=== PATIENT | female | born 1990 | race Caucasian/White ===

== ENCOUNTER → 2021-04-24 14:04 | Outpatient (CLI) | payer OTHER, SELFPAY | PROVIDERS: Visit Provider Obstetrics & Gynecology | DX: Z03.818 Encounter for observation for suspected exposure to other biological agents ruled out (principal) | CPT/HCPCS: 87635; C9803; U0005; U0003 ==

== ENCOUNTER 2021-04-27 06:58 | Inpatient (IN) | payer OTHER, SELFPAY ==
[2021-04-27] VITALS (35 sets, daily range): BP systolic 93–137; BP diastolic 51–85; PULSE 62–158; TEMP 36.4–37.5; O2SAT 83–100; BMI 24.6
[2021-04-27] MEDS: Lactated Ringers 1,000 ML 50 ML IV (07:55)
[2021-04-27 08:11] LABS: Absolute Lymphocyte Count 2.18 X10^3/uL (0.83-4.51); Absolute Neutrophil Count 8.1 X10^3/uL (2.0-7.7); Basophil# 0.03 X10^3/uL; Basophil% 0.3 % (0-1); Eosinophil# 0.08 X10^3/uL; Eosinophils% 0.7 % (0-5); Hematocrit 35.9 % (37-47); Hemoglobin 11.6 g/dL (12.0-15.0); Lymphocyte # 2.18 X10^3/ul (0.83-4.51); Lymphocyte % 19.2 % (19-41); Mean Corp Hgb Conc 32.3 g/dL (32-36); Mean Corpuscular Hgb 28.9 pg (27.0-32.0); Mean Corpuscular Volume 89.3 fL (81-99); Mean Platelet Vol. 11.1 fl (6.2-12.0); Monocyte# 0.81 X10^3/uL; Monocyte% 7.1 % (0-10); NRBC Flagged by Analyzer 0 % (0-5); Neutrophil # 8.07 X10^3/uL (2.7-7.7); Neutrophil % 71.2 % (47-70); Platelet Count 201 K/mm3 (150-450); RBC Distribution Width CV 13.9 % (11.6-14.6); RBC Distribution Width SD 45.4 fl (35.1-43.9); Red Blood Count 4.02 M/mm3 (4.2-5.4); White Blood Count 11.3 K/mm3 (4.4-11.0)
[2021-04-27] MEDS: 0.9% Normal Saline Single 100 ML IV.SOLN. INTRA-UTER (08:37)
[2021-04-27] MEDS: Oxytocin 30 units/NS 500 ml 30 UNITS/500 ML IV.SOLN IV (08:55)
[2021-04-27] MEDS: Lactated Ringers 500 ML 999 ML IV (11:30)
[2021-04-27] MEDS: Lactated Ringers 1,000 ML 200 ML IV (14:53)
[2021-04-27] MEDS: fentaNYL-bupivacaine (epidural) 100 ML BAG EPIDURAL ×2 (14:56→16:39)
[2021-04-27] MEDS: Oxytocin 30 units/NS 500 ml 30 UNITS/500 ML IV.SOLN 334 UNITS IV (17:59)
--- NOTE | 2021-04-27 18:11 | PCM.HP.OB ---
HPI - General General Date of Admission: 04/27/21 Date of Service: 04/27/21 Chief Complaint: HPI Narrative JON FRANCIS, is a 30 F who presents Maternal Data Information Final JO: 05/04/21 Final JO Source: US <20 weeks PFSH PFSH Home Medications no.144-folic acid [] 1 tab PO DAILY 04/27/21 [History Last Taken Unknown] Allergy/AdvReac Type Severity Reaction Status Date / Time No Known Allergies Allergy Verified 04/27/21 08:49 Social History Smoking Status: Current every day smoker History Elective abortions Hx Para 2 Spontaneous abortions Hx # Term Pregnancies Ectopic pregnancies Hx # Pregnancies Multiple births # of living children ROS Constitutional Constitutional: Denies fatigue, fever(s) or malaise Eyes Eyes: Denies change in vision ENT HEENT: Denies dizziness or headache(s) Cardiovascular Cardiovascular: Denies chest pain, dyspnea or lightheadedness Respiratory/Chest Respiratory/Chest: Denies cough or dyspnea Gastrointestinal Gastrointestinal: Denies change in bowel habits Genitourinary Genitourinary: Denies burning urination or genital lesions Integumentary Integumentary: Denies rash Neurologic Neurologic: Denies confusion, dizziness, headache(s), numbness or weakness Vital Signs Vital Signs Vital Signs: 04/27/21 08:10 04/27/21 08:11 04/27/21 10:29 Temperature 98.5 F Temperature Source Temporal Pulse Rate 81 72 Blood Pressure 124/62 H 106/61 BP Systolic 124 106 BP Diastolic 62 61 Pulse Ox 98 97 04/27/21 10:30 04/27/21 10:31 04/27/21 12:08 Temperature Temperature Source Pulse Rate 127 H 158 H 62 Blood Pressure BP Systolic BP Diastolic Pulse Ox 83 83 100 04/27/21 12:11 04/27/21 12:13 04/27/21 12:18 Temperature 98.2 F Temperature Source Pulse Rate 81 71 73 Blood Pressure 128/85 H 120/74 BP Systolic 128 120 BP Diastolic 85 74 Pulse Ox 99 98 04/27/21 12:23 04/27/21 12:28 04/27/21 12:33 Temperature Temperature Source Pulse Rate 76 78 76 Blood Pressure 107/67 103/59 L BP Systolic 107 103 BP Diastolic 67 59 Pulse Ox 98 98 98 04/27/21 12:36 04/27/21 12:38 04/27/21 12:41 Temperature Temperature Source Pulse Rate 75 85 90 Blood Pressure 103/51 L 99/56 L BP Systolic 103 99 BP Diastolic 51 56 Pulse Ox 97 04/27/21 12:43 04/27/21 12:47 04/27/21 12:48 Temperature Temperature Source Pulse Rate 77 72 75 Blood Pressure 109/57 L BP Systolic 109 BP Diastolic 57 Pulse Ox 97 97 04/27/21 13:28 04/27/21 14:41 04/27/21 14:42 Temperature 98.1 F Temperature Source Temporal Pulse Rate 84 70 Blood Pressure 109/60 93/56 L BP Systolic 109 93 BP Diastolic 60 56 Pulse Ox 98 98 04/27/21 15:38 04/27/21 16:42 04/27/21 16:43 Temperature 97.9 F 97.5 F L Temperature Source Temporal Temporal Pulse Rate 65 78 Blood Pressure 109/67 101/61 BP Systolic 109 101 BP Diastolic 67 61 Pulse Ox 99 99 95 04/27/21 17:45 Temperature Temperature Source Pulse Rate 105 H Blood Pressure BP Systolic BP Diastolic Pulse Ox 91 Weight Weight: 61.2 kg Body Mass Index (BMI) 24.6 Physical Exam Const alert and no apparent distress General Appearance: cooperative HEENT normocephalic Resp normal respiratory effort Cardio regular rate GI soft to palpation GI Narrative: gravid, nontender, appropriate for gestational age Extremity no calf tenderness General Extremity: edema Skin no wounds Rashes: No rashes noted Psych activity/motor behavior normal Labs Labs Labs: Blood Type B NEGATIVE Antibody Screen NEGATIVE Hct 35.9 % (37-47) L Hgb 11.6 g/dL (12.0-15.0) L Assessment & Plan (1) 39 weeks gestation of : (2) IUGR (intrauterine growth restriction): PLAN: R/B/A/P to lubin/pit/arom induction reviewed,questions answered to her satisfaction and she desires to proceed. EFW < 4000 gm and pelvis clinically adequate to expect vaginal delivery epidural prn Proceedure note- Lubin placed over stylette through internal cervical os and inflated to 30 cc and placement over internal os confirmed. Patient and fetus tolerate this well. (3) Supervision of other high risk pregnancies, third trimester:
--- NOTE | 2021-04-27 18:17 | EX.PCM.OBRPT ---
Assessment & Plan (1) Normal vaginal delivery: Maternal Data Information Final JO: 05/04/21 Vaginal Delivery Maternal Presentation Maternal Presentation: Medically Indicated Induction Type of Induction: Pitocin, Moya Bulb and Amniotomy Medical Reason for Induction: - (supsected IUGR, EFW < 4th percentile) Operative Information Date of Procedure: 04/27/21 Pre-Operative Diagnosis: 39 weeks multigravida, suspected IUGR Post-Operative Diagnosis: same Surgery / Procedure Performed: Spontaneous Vaginal Delivery Type of Anesthesia: Epidural Special Medications: none Drain: Moya to straight drain (removed at delivery) Estimated Blood Loss: 200 Time of Delivery: 17:58 Findings Description of Procedure: A vigorous female infant was delivered AMIE over an intact perineum. The remainder the infant was delivered with maternal pushing and gentle traction only in less than 15 seconds. The Pitocin infusion was initiated for active management of the third stage. The cord was clamped and cut after 1 minute. The infant was attended to by the waiting nursing staff. The placenta was delivered spontaneously and intact. The cervix and vagina were intact. Sponge and needle counts were correct. A vaginal sweep was completed by me. Presentation: AMIE Amniotic Membrane Rupture Type: Spontaneous Amniotic Fluid Description: Clear Placental Delivery Description: Spontaneous Placenta Disposition: [facility] Cord Vessel Description: 3 Vessels Cord Entanglement: None Nuchal Cord Compression: Without compression A Gender: Female (Lilli) (1 minute): 8 (5 minute): 9 Delayed Cord Clamping: Yes Post Vaginal Delivery Medications Given After Delivery: IV Pitocin Episiotomy Description: None Laceration: None Complication Complications: None
[2021-04-28] VITALS (11 sets, daily range): BP systolic 105–121; BP diastolic 55–72; PULSE 51–80; RESP 16–18; TEMP 36.8–37.1; O2SAT 97–100
[2021-04-28] MEDS: Naproxen 500 MG Tablet PO ×2 (00:30→12:16)
[2021-04-28] MEDS: Acetaminophen 500 MG Tablet 1000 MG PO (05:28)
--- NOTE | 2021-04-28 08:00 | PCM.PN.OB ---
Subjective Subjective Patient seen at bedside, doing well. pt reports good pain control. Lochia mild. urinating without difficulty, ambulating and tolerating regular diet. breast feeding. Objective Data Objective Data Vital Signs: Vital Signs Temp Pulse Resp BP Pulse Ox 98.6 F 65 16 109/72 100 04/28/21 07:31 04/28/21 07:31 04/28/21 07:31 04/28/21 07:31 04/28/21 03:10 Oxygen Delivery Method Room Air Weight: 61.2 kg Body Mass Index (BMI) 24.6 Intake & Output: Intake and Output for Last 24 Hours 04/26/21 04/27/21 04/28/21 23:59 23:59 23:59 Intake Total 2448.76 / 2448.76 Output Total 2400 / 2400 Balance 48.76 / 48.76 Lab / Micro Data Result Diagrams: 04/27/21 07:55 Labs: Laboratory Results - last 24 hr 04/27/21 04/27/21 04/27/21 07:55 07:55 21:27 WBC 11.3 H RBC 4.02 L Hgb 11.6 L Hct 35.9 L MCV 89.3 MCH 28.9 MCHC 32.3 RDW Std Deviation 45.4 H RDW Coeff of Bridger 13.9 Plt Count 201 MPV 11.1 Immature Gran % (Auto) 1.500 H Neut % (Auto) 71.2 H Lymph % (Auto) 19.2 Weston % (Auto) 7.1 Eos % (Auto) 0.7 Baso % (Auto) 0.3 Absolute Neuts (auto) 8.1 H Absolute Lymphs (auto) 2.18 Nucleated RBC % 0 Blood Type B NEGATIVE Antibody Screen NEGATIVE Screen NEGATIVE Baby's Blood Type O POSITIVE Baby's SHIVANI NEGATIVE Physical Exam Const alert and oriented x3 General Appearance: cooperative HEENT normocephalic Neck General: normal visual inspection GI soft to palpation and non-distended GI Narrative: Fundus firm Extremity normal to inspection and no calf tenderness Skin no rashes or lesions noted Neuro oriented x3 and CN's II-XII intact bilaterally Psych mental status grossly normal Assessment & Plan (1) Normal vaginal delivery: PLAN: PPD# 1 , Doing well Routine care pain mgmt ambulation dc home
--- NOTE | 2021-04-28 08:01 | PCM.DC ---
Discharge Instructions Diet Discharge Diet: No restrictions Activity May resume sexual activity in: 6-8 weeks Dressing / Incision Call your doctor if you observe: Fever of 101 or Higher, Inability to urinate, Using more than 1 pad per hour and Uncontrolled pain Follow Up Care Please Follow Up With: Radha Madera MD When: 1-2 weeks post and again at 6 weeks post . [phone] Test Results: Test results from this visit will be discussed in further detail at your follow-up appointment, if applicable. Discharge Plan Admission Admit Date/Time: 04/27/21 06:58 Attending Provider: Sophia Tovar Primary Care Provider: Payal Navarro NP Discharge Orders/Prescriptions Prescriptions: No Action 400 mcg Tablet,Chewable 1 tab PO DAILY RF: 0
== END 2021-04-28 18:30 | disposition home or self-care (01) | DRG 807 ==
PROVIDERS: Admitting Provider Obstetrics & Gynecology; PCP Nurse Practitioner Family; Referring Provider Obstetrics & Gynecology; Visit Provider Obstetrics & Gynecology
DX: O36.5930 Maternal care for other known or suspected poor fetal growth, third trimester, not applicable or unspecified (principal); Z37.0 Single live birth; O99.334 Smoking (tobacco) complicating childbirth; F17.200 Nicotine dependence, unspecified, uncomplicated; Z3A.39 39 weeks gestation of pregnancy
CPT/HCPCS: 59025; 59050; 85025; 85461; 86850; 86900; 86901; 90384; 99218; J7120; G0378; J2790

== ENCOUNTER 2022-06-24 17:05 | Emergency (ER) | payer BC, SELFPAY ==
[2022-06-24 17:06] VITALS: BP 127/83; PULSE 79; RESP 15; TEMP 36.4; O2SAT 99; BMI 19.3
--- NOTE | 2022-06-24 18:00 | EDS_ITS ---
HPI <PAPO Kim - Last Filed: 06/24/22 18:09> History of Present Illness Chief Complaint: Dental Narrative Narrative: 31-year-old female with no stated medical history presents the [facility] 4 to 5 days of left upper tooth pain. Patient was placed on amoxicillin, however after 1 day the swelling got worse they placed her on Augmentin, she has 2 days of Augmentin and still has having pain and swelling. She is established with a dentist which she is going to see on 02 July. She denies any fevers or chills. She denies any drainage. Patient still able to eat and drink however this is painful. PFSH <PAPO Kim - Last Filed: 06/24/22 18:09> [facility] Home Medications vitamins no.144-folic acid 400 mcg chewable tablet () 1 tab PO DAILY Check with primary doctor 04/27/21 [History Last Taken Unknown] clindamycin HCl 150 mg capsule 450 mg PO TID 7 days #63 caps 06/24/22 [Rx Last Taken Unknown] oxycodone-acetaminophen 5 mg-325 mg tablet (Percocet) 1 tab PO Q6H PRN pain 3 days #10 tabs 06/24/22 [Rx Last Taken Unknown] Allergy/AdvReac Type Severity Reaction Status Date / Time No Known Allergies Allergy Verified 06/24/22 17:08 Social History Smoking Status: Current every day smoker ROS <PAPO Kim - Last Filed: 06/24/22 18:09> ROS ED ROS Narrative Constitutional: Negative for fever, chills, weight loss, weakness Eyes: Negative for vision loss, vision change, double vision ENT: Negative for any sore throat, ear pain congestion. Positive for left facial pain, left facial swelling, left tooth pain Cardiovascular: Negative for any chest pain, tightness, palpitations Respiratory: Negative for any cough, sputum production, hemoptysis, dyspnea, dyspnea on exertion, orthopnea Gastrointestinal: Negative for any abdominal pain, nausea, vomiting, diarrhea, constipation, blood in stool, blood in vomit : Negative for any urinary frequency, dysuria, retention, blood in urine Muscle skeletal: Negative for any muscle joint pain, stiffness, myalgias, arthralgias, neck pain, back pain Neurological: Negative for any headache, syncope, numbness or tingling, dizziness Skin: Negative for any rashes, lumps, itching, abrasions, lacerations Psychiatric: Negative for any depression, anxiety, stress, suicidal ideation, homicidal ideation Hematologic: Negative for any easy bruising, excessive bruising, easy bleeding Allergies: Negative for any eczema, hives, rash EXAM <PAPO Kim - Last Filed: 06/24/22 18:09> Physical Exam Narrative Exam Narrative: Vital signs reviewed. HEET: Head normocephalic atraumatic, TMs clear bilaterally. Posterior pharynx is clear, moist mucous membranes. Nares clear bilaterally. Neck: Supple with no lymphadenopathy or tenderness. No signs of meningismus, negative jolt sign. Patient has no visual abscess to the left upper jaw. Patient does have some edema to the left lower eye, left cheek. There is no cellulitis, septal cellulitis, facial cellulitis. I do believe that this is referred inflammatory disease secondary to the infected tooth. Patient has slight trismus however is able to open the mouth as well as talk without any difficulty Cardiac: Regular rate and rhythm no murmurs gallops or rubs, equal peripheral pulses bilaterally. Respiratory: Lungs clear to auscultation bilaterally. No chest tenderness. Abdomen: Soft, nontender, nondistended. No abdominal bruit or pulsatile masses. No hepatosplenomegaly Extremities: No peripheral edema, no signs of gross trauma or deformity. Active full range of motion of all extremities. Neuro: Cranial nerves II through XII intact, no focal neurological deficits. Skin: Clean dry and intact with no rash, purpura, petechiae, vesicles or pustules. Backs/flank: No CVA tenderness, no midline spinal tenderness, no deformity. Psych: Normal mood and affect. No SI, HI or acute psychosis. Const Vital Signs: 06/24/22 17:06 Temperature 97.5 F L Temperature Source Temporal Pulse Rate 79 Respiratory Rate 15 Blood Pressure 127/83 H Blood Pressure Mean 97 Pulse Ox 99 Oxygen Delivery Method Room Air Positive well nourished and well developed General Appearance ED: well developed <Dr. Catalino Ventura DO - Last Filed: 06/24/22 18:25> Physical Exam Const Vital Signs: 06/24/22 17:06 Temperature 97.5 F L Temperature Source Temporal Pulse Rate 79 Respiratory Rate 15 Blood Pressure 127/83 H Blood Pressure Mean 97 Pulse Ox 99 Oxygen Delivery Method Room Air [facility] <PAPO Kim - Last Filed: 06/24/22 18:09> [facility] Lab Data Attestation: I reviewed the patient's lab results. Treatment and Re-Evaluation Narrative: Patient appears well, patient appears nontoxic, vital signs are stable. Patient presents to the emergency department with left facial swelling secondary to tooth infection. Patient has failed amoxicillin, Augmentin, however patient does not look septic. There is no gross drainage, no deep tissue infection. Patient has some referred edema secondary to the tooth infection. Patient will be switched to clindamycin as well as given a short course of pain medicine for her comfort. She will follow-up with her dentist as discussed this upcoming week. She is instructed to return for worsening pain, inability to open her mouth, fever chills nausea vomiting. Patient is stable for discharge <Dr. Catalino Ventura DO - Last Filed: 06/24/22 18:25> [facility] Narrative Medical decision making narrative: I performed a history and physical examination of the patient and discussed management plan with the physician pediatric physician assistant. I reviewed the physician pediatric physician assistant's note and agree with the documented findings and plan of care. Patient is status post working well on the left upper. This was done 2 days ago. She was started on amoxicillin yesterday changed to Augmentin and continues to swell. She notes bruising in the left periorbital region. She has an appointment on the with dentistry. I do not see or palpate an obvious drainable abscess along the gumline. There is no trismus or floor the mouth swelling. Patient will be placed on clindamycin and given pain medication. Return if worsening or concerns Catalino Ventura DO, MS Discharge Plan Triage Chief Complaint: Dental ED Midlevel Provider: Ugo Lockhart ED Provider: Catalino Ventura Dx/Rx/DC Orders Clinical Impression: Dental caries, Facial swelling, Tooth ache Instructions: ED Dental Pain, ED Dental Cavity Prescriptions: New clindamycin HCl 150 mg capsule 450 mg PO TID 7 Days Qty: 63 0RF oxycodone-acetaminophen [Percocet] 5-325 mg tablet 1 tab PO Q6H PRN (Reason: pain) 3 Days Qty: 10 0RF No Action 400 mcg Tablet,Chewable 1 tab PO DAILY Primary Care Provider: Payal Navarro NP Referrals: Payal Navarro NP, [employer] [Primary Care Provider] - Activity Restrictions/Additional Instructions: Please start new antibiotics of clindamycin, do not take any more Augmentin. Use pain medicine as needed, you may also use anti-inflammatories such as ibuprofen Disposition Disposition: Home, Self Care
[2022-06-24 18:27] VITALS: PULSE 82; RESP 17; O2SAT 99
== END 2022-06-24 18:28 | disposition home or self-care (01) ==
PROVIDERS: Emergency Provider Emergency Medicine; PCP Nurse Practitioner Family; Visit Provider Emergency Medicine
DX: K04.7 Periapical abscess without sinus (principal); K02.9 Dental caries, unspecified; F17.200 Nicotine dependence, unspecified, uncomplicated
CPT/HCPCS: 99282

== ENCOUNTER 2023-03-04 18:59 | Emergency (ER) | payer BC, SELFPAY ==
[2023-03-04 19:03] VITALS: BP 102/63; PULSE 103; RESP 18; TEMP 37.1; O2SAT 98; BMI 21.4
--- NOTE | 2023-03-04 20:07 | EX.ED.VIS.UR ---
HPI HPI - URI History of Present Illness Chief Complaint: Cough Informant: patient Narrative Narrative: Patient is a 32-year-old female currently 15 weeks presenting with fever and body aches and URI symptoms. Patient states about 8-9 days ago she developed cold symptoms. She has been only taking Tylenol. She states it started with sinus congestion and then she developed diarrhea and intermittent headaches. She had mild body aches but today her body is becoming more worse and she developed a fever of 100.4 ?F. Her cough is minimally productive. She took Mucinex around 4 PM and a cough but nonproductive since. She notes her symptoms have worsened since this afternoon. She denies any shortness of breath. Her family members have had milder version of the symptoms. Patient is [address] follows with Dr[address] Tovar. She denies any vaginal bleeding or leakage of fluids. Denies any abdominal pain or urinary symptoms. No other complaints at this time. ROS ROS ED Constitutional Constitutional ED: Reports chills and fever(s) Eyes Eyes: Denies change in vision ENT ENT ED: Reports other Details: nasal congestion ; Denies ear pain Cardiovascular Cardiovascular: Denies chest pain or palpitations Respiratory/Chest Respiratory/Chest: Reports cough; Denies dyspnea or dyspnea on exertion Gastrointestinal Gastrointestinal: Reports diarrhea; Denies abdominal pain, nausea or vomiting Genitourinary Genitourinary ED: Reports other Details: 15 weeks ; Denies dysuria or hematuria Musculoskeletal Musculoskeletal: Reports myalgias; Denies arthralgias Integumentary Denies rash Neurologic Neurologic: Denies headache(s) or weakness Psychiatric Psychiatric: Denies anxiety PFSH PFSH Home Medications vitamins no.144-folic acid 400 mcg chewable tablet () 1 tab PO DAILY Check with primary doctor 04/27/21 [History Last Taken Unknown] clindamycin HCl 150 mg capsule 450 mg PO TID 7 days #63 caps 06/24/22 [Rx Last Taken Unknown] oxycodone-acetaminophen 5 mg-325 mg tablet (Percocet) 1 tab PO Q6H PRN pain 3 days #10 tabs 06/24/22 [Rx Last Taken Unknown] albuterol sulfate 90 mcg/actuation aerosol inhaler (Ventolin HFA) 1 - 2 puff inhalation Q4H PRN PRN Wheezing #1 inh 03/04/23 [Rx Last Taken Unknown] benzonatate 200 mg capsule 200 mg PO TID PRN cough #20 caps 03/04/23 [Rx Last Taken Unknown] Allergy/AdvReac Type Severity Reaction Status Date / Time No Known Allergies Allergy Verified 03/04/23 19:03 Social History Smoking Status: Current every day smoker tobacco type: cigarettes EXAM Physical Exam Const Vital Signs: 03/04/23 19:03 Temperature 98.8 F Temperature Source Temporal Pulse Rate 103 H Respiratory Rate 18 Blood Pressure 102/63 Blood Pressure Mean 76 Pulse Ox 98 Oxygen Delivery Method Room Air Positive well nourished and well developed General Appearance ED: well developed and NAD HEENT Reports moist mucous membranes HEENT Narrative: Clear tympanic membranes bilaterally. Mild serous effusion on the right side. normocephalic and atraumatic Throat: posterior oropharynx normal Eyes PERRL and EOMs intact bilaterally Neck supple and no meningeal signs Resp normal respiratory effort and clear to auscultation bilaterally Resp Narrative: Clear breath sounds throughout. Patient does have bronchial cough on exam. No crackles appreciated Cardio no murmurs Rate: regular rate Rhythm: regular rhythm GI non-tender Palpation: soft; Negative for guarding Extremity normal to inspection and full ROM Neuro oriented x3 Sensorium / Orientation: alert Motor Exam: Negative for general weakness Psych mental status grossly normal Skin Rashes: no rashes MDM MDM MDM Narrative Medical decision making narrative: Patient evaluated for cough,, fever and URI symptoms. Presentation is consistent with a viral illness. Due to new fever in the setting of cough, CXR obtained. This is interpreted by myself as well as radiology as no acute process. COVID and flu swab are negative. Patient is hemodynamically stable in the ER. She is not hypoxic. She is afebrile at this time despite not taking any antipyretics prior to arrival. Physical exam is not consistent with acute pharyngitis. Abdomen is soft and nontender. I do not suspect another source of infection at this time. Patient be treated symptomatically with Tessalon Perles, albuterol inhaler and continue [id number] Tylenol, Robitussin and guaifenesin. Patient agreeable this plan of care. Is given reassurance as well as return precautions. Case is discussed with on-call, Conor, who is agreeable with these prescriptions and plan of care. Patient discharged home in stable condition Lab Data Attestation: I reviewed the patient's lab results. Radiography Diagnostic Testing: Clinical Impression(s) from Imaging Studies Chest X-Ray 03/04/23 20:15 IMPRESSION: No radiographic evidence of acute cardiopulmonary disease. Electronically Signed: Te Bernal DO at 20:50 EDT Reading Location ID and State: [facility] / [place] Tel [phone], Service support , Discharge Plan Triage Chief Complaint: Cough Other Complaint: Fever ED Provider: Essence Colvin Dx/Rx/DC Orders Clinical Impression: Acute viral syndrome, Bronchitis Instructions: ED Bronchitis, No Antibiotic (Adult), ED Viral Syndrome (Adult) Prescriptions: New benzonatate 200 mg capsule 200 mg PO TID PRN (Reason: cough) Qty: 20 0RF albuterol sulfate [Ventolin HFA] 90 mcg/actuation HFA aerosol inhaler 1 - 2 puff inhalation Q4H PRN PRN (Reason: Wheezing) Qty: 1 0RF No Action 400 mcg Tablet,Chewable 1 tab PO DAILY clindamycin HCl 150 mg capsule 450 mg PO TID 7 Days Qty: 63 0RF oxycodone-acetaminophen [Percocet] 5-325 mg tablet 1 tab PO Q6H PRN (Reason: pain) 3 Days Qty: 10 0RF Primary Care Provider: Care Physician,No Primary Referrals: Sophia Tovar MD [Med Staff - Active Staff] - 3-5 Days if not improving Care Physician,No Primary [Primary Care Provider] - Activity Restrictions/Additional Instructions: Your COVID and flu test were negative. I suspect your symptoms are viral and probably developing into a bronchitis. You been prescribed cough medicine as well as an inhaler. You may continue to take [id number] Robitussin, Tylenol and Mucinex for your symptoms. If you develop a difficult time breathing or have worsening symptoms please return to the emergency room. Disposition Disposition: Home, Self Care
[2023-03-04] MEDS: Acetaminophen 325 MG Tablet 650 MG PO (20:12)
--- NOTE | 2023-03-04 20:15 | RAD_ITS ---
INDICATION: cough, fever EXAMINATION/TECHNIQUE: X-RAY - XR Chest 2 Views COMPARISON: None. FINDINGS: LINES/DEVICES: None. LUNGS: No consolidation, edema or effusion. No pneumothorax. MEDIASTINUM AND CARDIOVASCULAR STRUCTURES: Cardiac silhouette not enlarged. Central airways and mediastinal contour are unremarkable. BONES AND SOFT TISSUES: Unremarkable. RAD/Chest PA and Lateral IMPRESSION: No radiographic evidence of acute cardiopulmonary disease. Electronically Signed: Te Bernal DO at 20:50 EDT ,
== END 2023-03-04 22:29 | disposition home or self-care (01) ==
PROVIDERS: Emergency Provider Emergency Medicine; Visit Provider Emergency Medicine
DX: O99.512 Diseases of the respiratory system complicating pregnancy, second trimester (principal); J40 Bronchitis, not specified as acute or chronic; Z3A.15 15 weeks gestation of pregnancy; O99.332 Smoking (tobacco) complicating pregnancy, second trimester; B34.9 Viral infection, unspecified; F17.210 Nicotine dependence, cigarettes, uncomplicated; O98.512 Other viral diseases complicating pregnancy, second trimester
CPT/HCPCS: 71046; 87428; 99283

== ENCOUNTER 2023-08-10 07:10 | Inpatient (IN) | payer BC, SELFPAY ==
[2023-08-10] VITALS (55 sets, daily range): BP systolic 98–132; BP diastolic 52–74; PULSE 60–86; RESP 16; TEMP 36.1–37.1; O2SAT 84–100; BMI 23.8
[2023-08-10] MEDS: Lactated Ringers 1,000 ML 50 ML IV (07:50)
--- NOTE | 2023-08-10 07:54 | PCM.HP.OB ---
HPI - General General Date of Admission: 08/10/23 HPI Narrative JON FRANCIS, is a 33 F @ 39 weeks who presents for elective IOL PFSH PFSH Home Medications vitamins no.144-folic acid 400 mcg chewable tablet () 1 tab PO DAILY Check with primary doctor 04/27/21 [History Last Taken Unknown] clindamycin HCl 150 mg capsule 450 mg (3 x 150 mg) PO TID 7 days #63 caps 06/24/22 [Rx Last Taken Unknown] oxycodone-acetaminophen 5 mg-325 mg tablet (Percocet) 1 tab PO Q6H PRN pain 3 days #10 tabs 06/24/22 [Rx Last Taken Unknown] albuterol sulfate 90 mcg/actuation aerosol inhaler (Ventolin HFA) 1 - 2 puff inhalation Q4H PRN PRN Wheezing #1 inh 03/04/23 [Rx Last Taken Unknown] benzonatate 200 mg capsule 200 mg PO TID PRN cough #20 caps 03/04/23 [Rx Last Taken Unknown] Allergy/AdvReac Type Severity Reaction Status Date / Time No Known Allergies Allergy Verified 08/10/23 07:57 Social History Smoking Status: Current every day smoker tobacco type: cigarettes History Elective abortions Hx Para 2 Spontaneous abortions Hx # Term Pregnancies Ectopic pregnancies Hx # Pregnancies Multiple births # of living children Vital Signs Vital Signs Vital Signs: 08/10/23 07:44 08/10/23 07:44 08/10/23 07:44 Pulse Rate 81 86 Blood Pressure 122/72 H BP Systolic 122 BP Diastolic 72 Pulse Ox 08/10/23 07:44 Pulse Rate Blood Pressure BP Systolic BP Diastolic Pulse Ox 99 Weight Weight: 57.334 kg Body Mass Index (BMI) 23.8 Physical Exam Const alert and oriented x3 General Appearance: cooperative HEENT normocephalic GI GI Narrative: Gravid, non tender to palpation. OB / External & Speculum: external exam normal Extremity normal to inspection Skin no rashes or lesions noted Neuro oriented x3 and CN's II-XII intact bilaterally Psych Appearance: grossly normal Labs Labs Labs: Blood Type B NEGATIVE Antibody Screen NEGATIVE Hct 35.9 % (37-47) L Hgb 11.6 g/dL (12.0-15.0) L
--- NOTE | 2023-08-10 08:17 | PCM.PN.BLA ---
Progress Note VE: /-2 AROM performed- Scant clear fluid. will start pitocin.
[2023-08-10] MEDS: Oxytocin 15 Units/NS 250ml 15 UNITS/250 ML IV.SOLN 2 UNITS IV (08:30)
[2023-08-10 08:43] LABS: Absolute Lymphocyte Count 1.74 X10^3/uL (0.83-4.51); Absolute Neutrophil Count 6.5 X10^3/uL (2.0-7.7); Basophil# 0.03 X10^3/uL; Basophil% 0.3 % (0-1); Eosinophil# 0.06 X10^3/uL; Eosinophils% 0.7 % (0-5); Hematocrit 36.7 % (37-47); Hemoglobin 11.8 g/dL (12.0-15.0); Lymphocyte # 1.74 X10^3/ul (0.83-4.51); Lymphocyte % 19.1 % (19-41); Mean Corp Hgb Conc 32.2 g/dL (32-36); Mean Corpuscular Hgb 28.3 pg (27.0-32.0); Mean Platelet Vol. 11.2 fl (6.2-12.0); Monocyte# 0.71 X10^3/uL; Monocyte% 7.8 % (0-10); NRBC Flagged by Analyzer 0 % (0-5); Neutrophil # 6.46 X10^3/uL (2.7-7.7); Neutrophil % 70.9 % (47-70); Platelet Count 182 K/mm3 (150-450); RBC Distribution Width SD 48.1 fl (35.1-43.9); Red Blood Count 4.17 M/mm3 (4.2-5.4); White Blood Count 9.1 K/mm3 (4.4-11.0)
[2023-08-10 09:27] LABS: Syphilis Antibodies Non-reactive
[2023-08-10] MEDS: LACTATED RINGERS 500 ML 999 ML IV (12:39)
[2023-08-10] MEDS: fentaNYL-bupivacaine (epidural) 100 ML BAG EPIDURAL (13:30)
--- NOTE | 2023-08-10 14:50 | NURSING ---
reviewed and agree with student nurse charting that is used for educational and learning purposes.
[2023-08-10] MEDS: Lactated Ringers 1,000 ML 200 ML IV (15:56)
--- NOTE | 2023-08-10 16:45 | EX.PCM.OBRPT ---
Vaginal Delivery Maternal Presentation Maternal Presentation: Elective Induction Type of Induction: Pitocin and Amniotomy Operative Information Date of Procedure: 08/10/23 Pre-Operative Diagnosis: 39 weeks gestation, supervision of normal Post-Operative Diagnosis: Live female born Surgery / Procedure Performed: Spontaneous Vaginal Delivery Type of Anesthesia: Epidural Drain: Moya to straight drain Estimated Blood Loss: 100 Time of Delivery: 16:34 Findings Description of Procedure: Patient progressed to fully dilated. Upon my arrival she was fully dilated +2 station. Good maternal pushing efforts delivered the 's head. Gentle downward traction delivered the anterior shoulder followed by the rest the 's body. The infant was then placed on the mother's chest for immediate skin to skin. Delayed cord clamping was performed. Pitocin was then started. The placenta was then delivered intact without complication. Vaginal and perineal tissue was examined and noted to be intact. Presentation: Vertex Amniotic Membrane Rupture Type: Artificial Amniotic Fluid Description: Clear Placental Delivery Description: Spontaneous Placenta Disposition: [facility] Cord Vessel Description: 3 Vessels Cord Entanglement: None (1 minute): 8 (5 minute): 9 Delayed Cord Clamping: Yes Post Vaginal Delivery Medications Given After Delivery: IV Pitocin Episiotomy Description: None Laceration: None Complication Complications: None
[2023-08-10] MEDS: Oxytocin 15 Units/NS 250ml 15 UNITS/250 ML IV.SOLN 83 UNITS IV (17:08)
[2023-08-10] MEDS: Acetaminophen 500 MG Tablet 1000 MG PO (22:26)
[2023-08-11] VITALS (9 sets, daily range): BP systolic 99–120; BP diastolic 52–76; PULSE 62–77; RESP 15–17; TEMP 36.1–36.8; O2SAT 98
[2023-08-11] MEDS: Ibuprofen 600 MG Tablet PO ×2 (01:37→07:59)
[2023-08-11] MEDS: Acetaminophen 500 MG Tablet 1000 MG PO ×2 (05:22→13:37)
[2023-08-11] MEDS: Senna/Docusate Sodium 1 Tablet PO (08:00)
--- NOTE | 2023-08-11 10:58 | DCINST_ITS ---
Discharge Instructions Diet Discharge Diet: No restrictions Activity Discharge Activity: May Shower May resume sexual activity in: 6 weeks Ice area for (Minutes): 15 Weight Bearing Status: Weight bearing as tolerated Lifting Restrictions: nothing heavier than baby Dressing / Incision Call your doctor if you observe: Fever of 101 or Higher, Coldness, Increased Pain, Numbness or Tingling, Change in Color, Inability to urinate, Inability to have a bowel movement, Using more than 1 pad per hour, Shortness of breath, Dizziness, Fainting spells, Swelling in the ankles, Chest pain, Increased palpitations (irregular heartbeat), Calf discomfort and Uncontrolled pain Cleanse incision/area with: Soap & Water Follow Up Care When: 1 week for early 6 weeks for exam Test Results: Test results from this visit will be discussed in further detail at your follow- up appointment, if applicable. Discharge Plan Admission Admit Date/Time: 08/10/23 07:10 Primary Reason for Your Visit: delivery Attending Provider: Radha Madera Primary Care Provider: Care Physician,Terrie Primary Instructions Patient Instructions: After a Vaginal Discharge Orders/Prescriptions Prescriptions: Continued 400 mcg Tablet,Chewable 1 tab PO DAILY Discontinued ferrous sulfate [iron] 325 mg (65 mg iron) tablet 325 mg PO DAILY famotidine 20 mg tablet 20 mg PO PRN Referrals / Follow Up: Care Physician,No Primary [Primary Care Provider] - Disposition Disposition (needs filled in before D/C Order can be placed): Home, Self Care
--- NOTE | 2023-08-11 10:58 | PCM.PN.OB ---
Subjective Subjective Doing well this morning. She offers no complaints. She desires to go home today. Some mild cramping. Denies lightheadedness, dizziness, chest pain, shortness of breath, leg pain. Lochia is normal. She is ambulating and voiding without difficulty. She is tolerating regular diet without nausea or vomiting. Objective Data Objective Data Vital Signs: Vital Signs Temp Pulse Resp BP Pulse Ox O2 Del Method 97.1 F L 71 17 112/60 99 Room Air 08/11/23 09:24 08/11/23 09:24 08/11/23 09:24 08/11/23 09:24 08/10/23 18:30 08/11/23 09:24 Oxygen Delivery Method Room Air Weight: 126 lb 6.4 oz Body Mass Index (BMI) 23.8 Intake & Output: Intake and Output for Last 24 Hours 08/09/23 08/10/23 08/11/23 23:59 23:59 23:59 Intake Total 2509.93 / 2509.93 Output Total 1600 / 1600 Balance 909.93 / 909.93 Lab / Micro Data 08/10/23 07:55 Labs: Laboratory Results - last 24 hr 08/10/23 07:55: Antibody Identification ANTI-D 08/10/23 18:50: Screen NEGATIVE, Baby's Blood Type B POSITIVE, Baby's SHIVANI NEGATIVE Physical Exam Const alert and no apparent distress General Appearance: comfortable HEENT normocephalic Resp normal respiratory effort GI soft to palpation, non-tender and non-distended GI Narrative: FF@U-1 Extremity normal to inspection and no calf tenderness Assessment & Plan (1) Normal vaginal delivery: PLAN: The patient is day 1 from a vaginal delivery. Desires discharge. Meeting milestones for discharge home. Has follow-up in the office next week.
--- NOTE | 2023-08-11 14:13 | NURSING ---
This practical nursing instructor reviewed the documentation and was present for all medication administration completed by Hilda Polanco, student nurse.
--- NOTE | 2023-08-12 13:48 | CASEMGMT ---
Social Work Assessment Labor and Delivery Unit Patient Address:[address] [place] [address] Phone number: [phone] Date of Referral: 08/10/23 Time of Referral:? 1918 Referred By: Radha Diaz Date of Intervention: 08/11/23?? Time of Intervention:? 1510 Reason for Referral:? History of PPD, was on zoloft Sw completed chart review and acknowledges social work consult. Sw presented to bedside and introduced self to mother of baby (MOB- Prisca) and father of baby (FOB- Blaine). Sw explained reason for sw involvement and completed psychosocial assessment. Sw assessed for any needs or concerns regarding MOB mental health history and any immediate issues. Sw did not see need to complete [place] Depression Scale. History obtained from: medical records and mother of baby (MOB)?and FOB. ?? Household composition: Currently residing in the family home is ANGELES MIRELES, now new born baby when ready for discharge and three other children. Omayra: 11 years old, Hector: 9 years old and Mary Anne: 6 years old Patient's parent/guardian status:? MOB and FOGuanakito met through mutual friends and have been for four years. They have two children together ( baby and Mary Anne), CHI's other two children are from a prior relationship. No concerns noted regarding domestic violence or intimate partner violence. Medical History: ?CHI is 6, para 3- now 4. CHI received routine care during with [facility]. Baby was born on 08/10/23 via vaginal delivery. Baby girl, named Sterling, was born weighing 7lb 5oz and her apgars were 8 and 9 at one and five minutes of life respectfully. Baby will be followed by Dr. George for pediatrics. Educational Status:?Both parents graduated from high school and have some college education, but no degree. Financial Status: Both parents are gainfully employed outside of the home. FOGuanakito works for [employer] as a supervisor rework. He is able to take one week off of work. CHI works for [employer] and is a wedding organizer for them. CHI is off of work until the next year. Supplies:??Parents have everything they need for baby including: car seat, safe sleep space, clothes, diapers, wipes and a breast pump. Childcare/Caregiver(s):? MOB will be the primary caregiver to baby while she is on maternity leave. When both parents are working MOB will be able to arrange her schedule so that one of them is usually home with the baby and other children. Parents report when they need help they do have some family and friends who can provide childcare. Transportation:?Both parents have their drivers license and reliable means of transportation. No transportation barriers at this time. ? Programs/Agencies Involved: ???Family is not connected to any community agencies/resources at this time. Children Services/Legal Issues: No former involvement, no issues or concerns warranting a referral at this time. ??? Behavioral Health Issues: ??Mental Health History:?FOB denies mental health history. When asked about mental health, MOB also denies any clinical diagnoses. Sw asked MOB if she ever struggled with baby blues or depression. MOB stated that she thinks she struggled with the baby blues, but worked through it and knows what to expect should she struggle. Sw educated parents on signs and symptoms of baby blues and depression/ anxiety. ?? Substance Use History:?MOB used tobacco during , denies any other substances prior to and during . ? Family History: Parents deny family mental health and family substance use history. ? Drug Screens: ?No urine screens observed in chart review ? Family/Social Stressors:? None disclosed at this time. Support Systems: Parents state they have family, friends and co-workers that are supportive Depression/Shaken Baby/Safe Sleeping:?Sw provided education on signs and symptoms of baby blues and depression to look for. Sw provided parents with literature on signs and symptoms of these issues for their review. Sw educated parents on shaken baby prevention and ABCs of safe sleep. Parents expressed understanding. ASSESSMENT:? FOB observed to hold baby in tender, loving manner. MOB presented to bedside after smoking outside, sw encouraged MOB to not smoke around baby, always smoke outside and to wash hands or change clothes prior to holding and caring for her. Parents answered questions asked by sw and engaged in conversation. Both parents appeared eager for discharge, happy that baby was born and expressed no issues or concerns at this time. Parents were receptive to sw involvement and support. PLAN:?MOB and baby to be discharged when medically ready. ?No other services requested or indicated. Jeniffer Sandoval, MANAGER VIDEO, DIESEL ENGINE TESTER
--- NOTE | 2023-08-15 11:29 | NURSING ---
follow up call complete, denies questions or concerns reports her and baby are both doing very well. Reports to stopping yesterday and switching to formula but is okay with this decision and denies the need for care at this time .Reports that she was satisfied with her care in the [facility]
== END 2023-08-11 17:45 | disposition home or self-care (01) | DRG 807 ==
PROVIDERS: Admitting Provider Obstetrics & Gynecology; Referring Provider Obstetrics & Gynecology; Visit Provider Obstetrics & Gynecology
DX: O75.9 Complication of labor and delivery, unspecified (principal); Z37.0 Single live birth; O26.23 Pregnancy care for patient with recurrent pregnancy loss, third trimester; F17.210 Nicotine dependence, cigarettes, uncomplicated; O99.334 Smoking (tobacco) complicating childbirth; Z3A.39 39 weeks gestation of pregnancy
CPT/HCPCS: 59025; 59050; 85025; 85461; 86780; 86850; 86870; 86900; 86901; 99221; J7120; G0378; J2790

== ENCOUNTER 2023-10-21 11:16 | Day surgery (SDC) | payer BC, SELFPAY ==
[2023-10-21] VITALS (8 sets, daily range): BP systolic 108–151; BP diastolic 63–90; PULSE 50–79; RESP 16–18; TEMP 36.4–37; O2SAT 98–100; BMI 21.2
--- NOTE | 2023-10-21 | FALS_PTH ---
PATIENT: JON VASQUES [place] [facility] [id number] AGE/SX: 33/F ROOM: RE10/21/[address]: Dr. Azalea Sabillon DO : 1990 BED: DIS: 10/21/2023 SPEC #: [id number] RECD: 10/21/23 16:20 STATUS: SHIRA REShawnee #: [id number] JOAQUIN: 10/21/23 00:[address]: Azalea Sabillon DEPT: SURGICAL PATHOLOGY RECD BY: Oscar Blandon ENTERED: 10/24/23 09:18 SP TYPE: FALL TUBES OTHR DR: Terrie Primary Care Phys Tissues: Fallopian tube Procedures: Surgery Specimen Level II HEADER OPERATION: Laparoscopic bilateral salpingectomy PRE-OP DIAGNOSIS: Sterilization TISSUE SUBMITTED: Bilateral fallopian tubes MICROSCOPIC DIAGNOSIS Right and left fallopian tubes, bilateral salpingectomies: Complete cross-sections of fallopian tubes with no pathologic change. AM:tiburcio 10/25/2023 MICROSCOPIC DESCRIPTION Slides are reviewed. GROSS DESCRIPTION Received in fixative is one container labeled with the patient's name and designated bilateral fallopian tubes. The specimen consists of bilateral fallopian tubes including fimbrial ends. One fallopian tube measures 6.0 cm in length and up to 0.7 cm in diameter. The second fallopian tube received in two pieces measures 7.0 cm in length and 0.7 cm in diameter. The fallopian tubes are not identified as right or left. Sections reveal unremarkable cut surfaces. [employer] Manager sections are submitted in two cassettes as follows: 1 - intact fallopian tube, 2 - fallopian tube received in two pieces. / GENEVA:tiburcio 10/24/2023 TC:4 CPT: 99322 x2
[2023-10-21 11:44] LABS: Internal QC Validated? YES +Cl - CLEAR BKGD; Pregnancy, Urine Negative Negative
[2023-10-21] MEDS: Lactated Ringers 1,000 ML 15 ML IV ×2 (12:03→14:11)
[2023-10-21 12:12] LABS: Hematocrit 41.3 % (37-47); Hemoglobin 13.6 g/dL (12.0-15.0); Mean Corp Hgb Conc 32.9 g/dL (32-36); Mean Corpuscular Hgb 29.1 pg (27.0-32.0); Mean Corpuscular Volume 88.2 fL (81-99); Mean Platelet Vol. 10.4 fl (6.2-12.0); Platelet Count 227 K/mm3 (150-450); RBC Distribution Width CV 15.4 % (11.6-14.6); RBC Distribution Width SD 49.5 fl (35.1-43.9); Red Blood Count 4.68 M/mm3 (4.2-5.4); White Blood Count 7.5 K/mm3 (4.4-11.0)
[2023-10-21] MEDS: Bupivacaine Mpf 0.5% 30 ML VIAL (13:37)
--- NOTE | 2023-10-21 13:45 | OP.PCM_ITS ---
Problems Associated Problem List Diagnoses (1) Request for sterilization: Report of Operation Date of Procedure: 10/21/23 Pre-Operative Diagnosis: Request for sterilization Post-Operative Diagnosis: As above Surgery/Procedure Performed:: Laparoscopic bilateral salpingectomy Description of Surgical Findings:: Normal appearing uterus and bilateral adnexa. Normal-appearing pelvic cul-de-sac Surgeon: Azalea Sabillon ambulance driver paramedic: Daisy Amaya [id number] Type of Anesthesia: General Special Medications: None Specimen's removed: Bilateral fallopian tubes Drains: None Estimated Blood Loss (mL): < 50 Fluids Replaced: 1.2 L Description of Procedure: The patient was taken to the operating room where she was prepped and draped in the usual sterile fashion in dorsal lithotomy position using yellowfin stirrups, and general anesthesia was induced. A weighted speculum was placed in the vagina to expose the cervix. The anterior lip of the cervix was grasped with a single-tooth tenaculum. A uterine manipulator was placed. The single-tooth tenaculum and weighted speculum were removed. Gloves were changed and attention was turned to the abdominal portion of the procedure. An infraumbilical incision was made with a scalpel to accommodate the 5 mm port. The 5 mm port was placed using a laparoscope under direct visualization. Once confirmed intraperitoneal, CO2 insufflation was initiated. No injury was noted upon entry. The patient was placed in Trendelenburg. A left lateral 5 mm port was placed. A right lateral 5 mm port was placed. The uterus and bilateral adnexa were normal-appearing. The right fallopian tube was followed out to the fimbriated end. Using the LigaSure device the mesosalpinx was serially clamped, cauterized, and transected hugging adjacent to the fallopian tube until reaching level of the cornua. Once at the level of the cornua the left fallopian tube was transected and removed. The right fallopian tube was then followed out to the fimbriated end. The LigaSure device was used to serially clamp, cauterize, and transect along the mesosalpinx hugging adjacent to the fallopian tube until reaching the level of the cornua. Once at the level of the cornua the fallopian tube was transected and removed. Bilateral fallopian tubes were sent to pathology for review. Hemostasis was noted. The ports were removed and the abdomen was exsufflated. The skin was closed with 4 Monocryl and glue. The uterine manipulator was removed from below and the vaginal sweep was performed. Instrument, sharp, sponge counts were correct and the patient was taken to the recovery room in stable condition. The retail loan originator assistant Daisy Amaya medical student 3 was present and assisted with draping the patient, removal of the fallopian tubes, and closure. Grafts/Implants Used: None Procedure Start Time: 13:12 Procedure Stop Time: 13:43 Complications None Admit VTE Documentation VTE Present on Admission: No VTE Mechan Device Prophylaxis: SCD's
--- NOTE | 2023-10-21 14:00 | DCINST_ITS ---
Discharge Instructions Diet Discharge Diet: No restrictions Activity Discharge Activity: May Drive (once you are more than 24 hours out from surgery) and May Shower (once you are more than 24 hours out from surgery) May resume sexual activity in: 1 week (no soaking in water and no intercourse for 1 week while having the vaginal bleeding) Ice area for (Minutes): 15 Weight Bearing Status: Weight bearing as tolerated Lifting Restrictions: nothing greater than 10-15 lbs for first week Dressing / Incision Call your doctor if your incision/area has: Continuous Slow Oozing, Sudden Increased Bleeding, Increased Pain/ Swelling, Increased Redness, Foul Smelling Discharge and Swelling at the incision site Call your doctor if you observe: Fever of 101 or Higher, Coldness, Increased Pain, Numbness or Tingling, Change in Color, Inability to urinate, Inability to have a bowel movement, Using more than 1 pad per hour, Shortness of breath, Dizziness, Fainting spells, Swelling in the ankles, Chest pain, Increased palpitations (irregular heartbeat), Calf discomfort and Uncontrolled pain Suture Line Care: Avoid Pulling/Pushing and Avoid Pinching/Bending Remove Dressing in: leave until fall off Cleanse incision/area with: Soap & Water Follow Up Care Please Follow Up With: Azalea Sabillon DO When: 1-2 weeks for post op Test Results: Test results from this visit will be discussed in further detail at your follow- up appointment, if applicable. Discharge Plan Admission Primary Reason for Your Visit: surgery Attending Provider: Azalea Sabillon Primary Care Provider: Care Physician,Terrie Primary Discharge Orders/Prescriptions Prescriptions: New oxycodone-acetaminophen [Percocet] 5-325 mg tablet 1 tab PO Q6H PRN (Reason: pain) 7 Days Qty: 10 0RF Referrals / Follow Up: Care Physician,Terrie Primary [Primary Care Provider] - Disposition Disposition (needs filled in before D/C Order can be placed): Home, Self Care
== END 2023-10-21 15:49 | disposition home or self-care (01) ==
LOC: SDC 11:18 → AC 11:20
PROVIDERS: Referring Provider Obstetrics & Gynecology; Visit Provider Obstetrics & Gynecology
PROC: (CPT 58661; principal; 2023-10-21 12:35)
DX: Z30.2 Encounter for sterilization (principal); F17.210 Nicotine dependence, cigarettes, uncomplicated; Z87.59 Personal history of other complications of pregnancy, childbirth and the puerperium
CPT/HCPCS: 58661; 00840; 81025; 85027; 86850; 86870; 86900; 86901; 88302; J7120; J2405